=== PATIENT | male | born 1985 | race American Indian/Alaskan Native ===

== ENCOUNTER 2019-09-05 08:22 | Emergency (ER) | payer MEDICAID ==
--- NOTE | 2019-09-05 08:32 | Event Note ---
ED Screening Note Date of service: 09/05/19 Time: 08:31 ED Screening Note: 34 y/o female comes in for RLQ pain. This initial assessment/diagnostic orders/clinical plan/treatment(s) is/are subject to change based on patients health status, clinical progression and re- assessment by fellow clinical providers in the ED. Further treatment and workup at subsequent clinical providers discretion. Patient/guardian urged not to elope from the ED as their condition may be serious if not clinically assessed and managed. Initial orders include:
[2019-09-05 08:36] VITALS: BP 134/91
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
== END 2019-09-05 09:49 | disposition home or self-care (01) ==
LOC: ED 08:22
DX: M54.9 Dorsalgia, unspecified (principal); M54.2 Cervicalgia
CPT/HCPCS: 99281